=== PATIENT | male | born 1960 | race Caucasian/White ===

== ENCOUNTER 2016-10-08 06:30 | Emergency (ER) | payer OTHER ==
[2016-10-08 07:26] LABS: HEMOGLOBIN 15.1 gm/dl (14.0-17.5); RED BLOOD COUNT 4.69 M/UL (4.20-5.50)
[2016-10-08 07:46] LABS: BUN/CREATININE RATIO 20 (0-10)
== END 2016-10-08 18:50 | disposition short-term general hospital (02) ==
LOC: ER1 06:30
PROVIDERS: Physician Assistant
DX: K52.9 Noninfective gastroenteritis and colitis, unspecified (principal); K62.5 Hemorrhage of anus and rectum; Z88.0 Allergy status to penicillin
CPT/HCPCS: 36415; 80053; 81001; 82272; 83605; 83690; 84484; 85025; 85610; 85730; 93005; 96361; 96365; 96367; 96375; 99284; C9113; J1956; J7050; Q9962

== ENCOUNTER → 2020-10-26 | Outpatient (CLI) | payer OTHER | LOC: HEART 5 14:43 | DX: R05 Cough (principal) | CPT/HCPCS: 71046; 94010 ==